=== PATIENT | male | born 1960 | race Caucasian/White ===

== ENCOUNTER 2017-02-17 06:02 | Outpatient (CLI) | payer MEDICAID ==
[~2017-02-17] VITALS: Ht 172.7 cm; Wt 67.3 kg
--- NOTE | ~2017-02-17 | HEMODYNAMI ---
PATIENT:TANVI DANIELS MEDICAL RECORD: [id number] : 60 LOCATION:[facility] ADMISSION DATE: 02/17/17 Generatedon:02/17/20178:38 Patient name: TANVI DANIELS Patient #: [id number] SSN: : Date of study: 02/17/2017 Page: Of Hemodynamic Procedure Report Patient Data Patient Demographics Procedure consent was obtained First Name: TANVI Gender: Male Last Name: JEREMIAH : 1960 Patient #: [id number] Age: 56 year(s) Race: Unknown Additional ID: [id number] Contact details Address: [address] [place] [address] [address] State: [place] City: [place] Zip code: [address] Past Medical History Allergies Allergen Reaction Date Comments Reported Other allergy 02/17/2017 All Debi, Amoxicillin, [place] Admission Admission Data Admission Date: 02/17/2017 Admission Time: 6:02 Height (in.): 5.8 BSA: 0.3 (m2) Height (cm.): 14.73 BMI: 3155.87 (kg/m2) Weight (lbs.): 151 Weight (kg.): 68.49 Lab Results Lab Result Date: 02/17/2017 Lab Result Time: 6:40 Biochemistry Name Units Result Min Max BUN mg/dl 13 --(--*-)-- 7 18 Creatinine mg/dl 0.9 --(-*--)-- 0.6 1.3 CBC Name Units Result Min Max Hematocrit % 46.4 --(-*--)-- 42 54 Hemoglobin g/dl 15.5 --(-*--)-- 13.5 17.5 Procedure Procedure Types Cath Procedure Diagnostic Procedure [facility] w/Coronaries w/Grafts Miscellaneous Procedures Moderate Sedation up to 30 minutes Procedure Description Procedure Date Procedure Date: 02/17/2017 Procedure Start Time: 8:09 Procedure End Time: 8:36 Procedure Staff Name Function Fuentes Jose MD Performing Physician Justin Andrews RN Nurse Reanna Figueroa RN Clinique Counter Manager Chava Waldropyder RT Monitor bOombate RT Scrub Procedure Data Cath Procedure Fluoroscopy Diagnostic fluoroscopy Total fluoroscopy Time: 3.4 time: 3.4 min min Diagnostic fluoroscopy Total fluoroscopy dose: 449 dose: 449 mGy mGy Contrast Material Contrast Material Type Amount (ml) Isovue 300 84 Entry Location Entry Primary Successful Side Size Upsize Upsize Entry Closure Succes sful Closure Location (Fr) 1 (Fr) 2 (Fr) Remarks Device Remarks Femoral Right 5 Fr Exoseal artery Estimated blood loss: 5 ml Diagnostic catheters Device Type Used For End Catheter Placement Diagnostic Infinity 5Fr Procedure AR MOD Catheter Diagnostic Infinity 5Fr Procedure LCB catheter Cordis 5Fr Pigtail Procedure Catheter (MP) Procedure Complications No complications Procedure Medications Medication Administration Route Dosage 0.9% NaCl I.V. 100 ml/hr Oxygen NC 2 l/min Heparin Flush Bag added to field 2 bags (1000units/500ml NS) Versed I.V. 2 mg Fentanyl I.V. 100 mcg Versed I.V. 1 mg Fentanyl I.V. 50 mcg Hemodynamics Rest BSA: 0.3 (m2) HGB: 15.5 (g/dl) O2 Consumption: Estimated: 33.47 (ml/min) O2 Cons umption indexed: Estimated:111.57 (ml/min/m) Heart Rate: 52 (bpm) Pressure Samples Time Site Value (mmHg) Purpose Heart Use Rate(bpm) 8:26 LV 126/2,15 Snapshot 48 8:27 AO 135/64(91) Pullback 52 8:27 LV 127/1,17 Pullback 52 Gradients Valve Time Site 1 Site 2 Mean SEP/DFP Peak To Heart Use (mmHg) (sec/min) Peak Rate (mmHg) (bpm) Aortic 8:27 LV AO 0 4 0 52 127/1,17 135/64(91) Calculations Valve P-P Mean Valve Index Valve Source Name Gradient Area Flow (cm2) Aortic 0 0 0 0 Snapshots Pre Cath Intra NCS Post Cath Vital Signs Time Heart Resp SPO2 etCO2 NIBP (mmHg) Rhythm Pain Sedation Rate (ipm) (%) (mmHg) Status Level (bpm) 7:53:36 56 15 100 23.3 158/74(112) NSR 0 (11) 10(A) , No pain 7:58:25 46 14 100 30.1 130/72(101) NSR 0 (11) 10(A) , No pain 8:03:09 47 14 100 41.4 125/68(99) NSR 0 (11) 10(A) , No pain 8:07:50 44 18 100 42.9 125/66(90) NSR 0 (11) 10(A) , No pain 8:12:29 45 19 100 42.2 121/79(96) NSR 0 (11) 10(A) , No pain 8:17:09 45 31 100 43.7 121/69(89) NSR 0 (11) 10(A) , No pain 8:21:50 49 18 100 22.6 121/68(93) NSR 0 (11) 10(A) , No pain 8:26:32 47 16 100 46 114/67(87) NSR 0 (11) 9(A) , No pain 8:31:58 46 19 100 44.5 122/68(90) NSR 0 (11) 9(A) , No pain 8:36:39 43 8 100 41.4 129/67(98) NSR 0 (11) 9(A) , No pain Medications Time Medication Route Dose Verified Delivered Reason Notes Effect iveness by by 7:51:53 0.9% NaCl I.V. 100 Justin Justin Per ml/hr Juliana Andrews physician RN RN 7:52:07 Oxygen NC 2 Justin Justin Per l/min Lorjulio Yangigan physician RN RN 7:52:25 Heparin Flush added 2 Justin Justin used for Bag to bags Lorigan Lorigan procedure (1000units/500ml field RN RN NS) 8:03:17 Versed I.V. 2 mg Justin Justin for Lorigan Lorigan sedation RN RN 8:03:29 Fentanyl I.V. 100 Justin Justin for mcg Lorigan Lorigan sedation RN RN 8:09:00 Versed I.V. 1 mg Justin Justin for Lorigan Lorigan sedation RN RN 8:11:40 Fentanyl I.V. 50 Justin Justin for mcg Lorigan Lorigan sedation RN director of annual giving Log Time Note 7:39:35 Reanna Figueroa RN sent for patient. Start room use. 7:39:37 Time tracking: Regular hours 7:39:41 Plan of Care:Hemodynamics will remain stable., Cardiac rhythm will remain stable., Comfort level will be maintained., Respiratory function will remain adequate., Patient/ family verbilizes understanding of procedure., Procedure tolerated without complication., Recovers from procedure without complications.. 7:40:07 H&P Date Dictated: 02/08/2017 Within 30 days and on chart., H&P Addendum completed by physician on day of procedure. (MUST COMPLETE FOR ALL OUTPATIENTS). 7:40:34 Patient Height : 5.8 inches 7:40:40 Patient Weight : 151 lbs 7:44:14 Patient received from Pre/Post Procedure Room to CCL 1 Alert and oriented. Tansferred to table in Supine position. 7:44:16 Warm blankets applied, and hilario hugger turned on for patient comfort. 7:44:16 Correct patient and procedure confirmed by team. 7:44:21 Signed procedure consent form obtained from patient. 7:44:21 ECG and BP/O2 sat monitors applied to patient. 7:51:53 0.9% NaCl 100 ml/hr I.V. was administered by Justin Andrews RN; Per physician; 7:52:07 Oxygen 2 l/min NC was administered by Justin Andrews RN; Per physician; 7:52:25 Heparin Flush Bag (1000units/500ml NS) 2 bags added to field was administered by Justin Andrews RN; used for procedure; 7:52:33 Vital chart was started 7:55:57 Baseline sample Acquired. 7:56:02 Rhythm: sinus rhythm 7:56:04 Full Disclosure recording started 7:56:05 Pre-procedure instructions explained to patient. 7:56:06 Pre-op teaching completed and patient verbalized understanding. 7:56:21 Family in waiting room. 7:56:23 Patient NPO since Midnight. 7:56:45 Patient allergic to Other allergyAll Debi, Amoxicillin, [place] 7:56:47 Is the patient allergic to Iodine/contrast media? No. 7:56:48 Is patient on blood thinner?No 7:56:49 Patient diabetic? No. 7:56:52 Previous problem with sedation/anesthesia? No ? 7:56:53 Snore? No 7:56:54 Sleep apnea? No 7:56:55 Deviated septum? No 7:56:56 Opens mouth fully? Yes 7:56:57 Sticks out tongue? Yes 7:56:58 Airway obstruction? No ? 7:57:19 Dentures? Yes Upper and bottom in tight 7:57:24 Pre procedure: right dorsailis pedis pulse 2+ Normal; easily identifiable; not easily obliterated 7:57:27 Patient pain scale 0/10 ?. 7:57:37 IV patent on arrival in left forearm with 0.9% NaCl at [facility]. 7:59:34 Lab Result : BUN 13 mg/dl 7:59:34 Lab Result : Creatinine 0.9 mg/dl 7:59:34 Lab Result : Hemoglobin 15.5 g/dl 7:59:34 Lab Result : Hematocrit 46.4 % 7:59:37 Lab results completed and on chart. 7:59:38 Lab results completed and on chart. 7:59:40 Right groin area was prepped with chlora-prep and draped in sterile fashion 7:59:42 Alarms reviewed by R. N. 7:59:42 Sharps counted by scrub and verified by R.N. 7:59:47 Use device set Femoral Dx 7:59:50 PERCUTANEOUS ENTRY 19GA needle opened to sterile field. 7:59:51 Tegaderm 4 x 4 (1626W) opened to sterile field. 7:59:54 ACIST Manifold (00450) opened to sterile field. 8:00:04 ACIST Hand Control (05973) opened to sterile field. 8:00:06 St Isra 260cm J .035 wire opened to sterile field. 8:00:06 Terumo 5Fr Stuyvesant Sheath opened to sterile field. 8:00:07 Medline Cath Pack ([id number]) opened to sterile field. 8:00:08 Bag Decanter (2002S) opened to sterile field. 8:00:10 ACIST Syringe (40853) opened to sterile field. 8:00:19 Diagnostic Infinity 5Fr Multipack catheter opened to sterile field. 8:01:24 Physician arrived 8:01:24 --------ALL STOP TIME OUT------ 8:01:25 Final Timeout: patient, procedure, and site verified with staff and physician. All members of the team are in agreement. 8:01:27 Right groin site verified by team. 8:01:29 Physical assessment completed. ASA score P 2 - A patient with mild systemic disease as per Fuentes Jose MD. 8::33 Sedation plan: IV Moderate Sedation Medication:Versed, Fentanyl 8::33 Zero performed for pressure channel P1 8:03:17 Versed 2 mg I.V. was administered by Justin Andrews RN; for sedation; 8::29 Fentanyl 100 mcg I.V. was administered by Justin Andrews RN; for sedation; 8:09:00 Versed 1 mg I.V. was administered by Justin Andrews RN; for sedation; 8:09:47 Procedure started. 8:10:16 No local anesthetic used due to allergies. 8:11:40 Fentanyl 50 mcg I.V. was administered by Justin Andrews RN; for sedation; 8:13:31 A 5 Fr sheath was inserted into the Right Femoral artery 8:14:31 LCA angiography performed. 8:16:56 Catheter exchanged over wire. 8:17:59 A Diagnostic Infinity 5Fr AR MOD Catheter was advanced over the wire and used for Procedure. 8:18:33 RCA angiography performed. 8:20:47 Catheter removed. unable to cannulate vessel. 8:22:51 A Diagnostic Infinity 5Fr LCB catheter was advanced over the wire and used for Procedure. 8:23:02 SVG to LAD/DIAG angiography performed. 8:24:56 Catheter exchanged over wire. 8:25:07 A Cordis 5Fr Pigtail Catheter (MP) was advanced over the wire and used for Procedure. 8:26:41 LV gram done using DYKES 8::43 Injector settings: Ml/sec: 10, Volume: 20, 8:26:49 EF : 50 % 8:27:07 Catheter removed. 8:27:13 Cordis 5Fr Exoseal opened to sterile field. 8:27:21 Sheath removed intact; hemostasis achieved with Exoseal to the Right Femoral artery. 8:28:48 Procedure ended.(Physican Out) 8:30:29 Fluoroscopy time 03.40 minutes. 8:32:59 Flurop Dose total: 449 8:32:59 Fluoroscopy dose: 449 mGy 8:33:04 Contrast amount:Isovue 300 84ml. 8:33:05 Sharps counted by scrub and verified by R.N. 8:33:08 Insertion/operative site no bleeding no hematoma. 8:33:10 Post-op/insertion site Right Femoral artery dressed using a 4 x 4 and Tegaderm. 8:33:14 Post right femoral artery:stable, soft, clean and dry 8:33:16 Post Procedure Pulses reassessed and unchanged 8:33:17 Post-procedure physical assessment completed. ASA score P 2 - A patient with mild systemic disease as per Fuentes Jose MD. 8:33:20 Post procedure rhythm: unchanged. 8:33:23 Estimated blood loss: 5 ml 8:33:24 Post procedure instruction explained to patient.Patient verbalizes understanding. 8:33:25 Patient needs reinforcement of post procedure teaching. 8:34:59 Procedure type changed to Cath procedure, Diagnostic procedure, LHC, LHC w/Coronaries w/Grafts, Miscellaneous Procedures, Moderate Sedation up to 30 minutes 8:35:56 Procedure and supply charges have been captured, reviewed, submitted and are correct. 8:35:58 Procedure Complication : No complications 8:36:00 Vital chart was stopped 8:36:01 See physician's report for complete and final results. 8:36:03 Report given to Pre/Post Procedure Room. 8:36:05 Patient transfered to Pre/Post Procedure Room with Stretcher. 8:36:08 Procedure ended. 8:36:08 Full Disclosure recording stopped 8:36:46 End room use (Document Last) Device Usage Item Name Manufacture Quantity Catalog Hospital Part Current Minimal Lot# / Number Charge Number Stock Stock Serial# Code PERCUTANEOUS Cook Medical 1 [id number] 108062 5 ENTRY 19GA needle Tegaderm 4 x 3M 1 1626W 920364 919128 548546 5 4 (1626W) ACIST Acist 1 85139 943148 767986 303715 5 Manifold Medical (68463) Systems Inc ACIST Hand Acist 1 10067 322958 223173 263793 5 Control Medical (84434) Systems Inc St Isra St Isra 1 892394 482979 195723 691916 30 260cm J .035 wire Terumo 5Fr Terumo 1 QNT391 968461 671816 651065 40 Stuyvesant Sheath Medline Cath Cardinal 1 [id number] 907353 63127 671417 5 Pack [employer] (WAIM88052) Bag Decanter Microtek 1 2001S 025198 48476 795543 5 () Medical Inc. ACIST Acist 1 70124 152566 597521 314928 20 Syringe Medical (42757) Systems Inc Diagnostic Cardinal 1 NE5471 952872 57982 085504 30 Infinity 5Fr Health Multipack catheter Diagnostic Cardinal 1 397060Y 328601 887877 645202 15 Infinity 5Fr Health AR MOD Catheter Diagnostic Cardinal 1 [id number] 296465 152247 579914 5 Infinity 5Fr Health LCB catheter Cordis 5Fr Cardinal 1 884914 5 Pigtail Health Catheter (MP) Cordis 5Fr Cardinal 1 EX500 611602 206796 397868 10 Shoop Signature Audit [place] Stage Time Signature Unsigned Intra-Procedure 02/17/2017 Chava Garcia 8:38:12 AM RT(R) Signatures Monitor : Chava Garcia RT Signature : Date : Time : [address] [address]
[2017-02-17] MEDS ORDERED: BAYER CHEWABLE81 MG PO (06:17)
[2017-02-17] MEDS ORDERED: LIPITOR20 MG PO (06:17)
[2017-02-17 06:24] VITALS: BP 166/79; Ht 172.7 cm; Wt 67.3 kg
[2017-02-17 07:01] LABS: CALC OSMOLALITY 278 mosm/kg (275-300); CALCIUM 8.6 mg/dL (8.5-10.1); CARBON DIOXIDE 26.6 mmol/L (21.0-32.0); CHLORIDE - SERUM 106 mmol/L (98-107); CREATININE - SERUM 0.9 mg/dL (0.6-1.3); GLUCOSE 92 mg/dL (74-106); SODIUM 140 mmol/L (136-145); UREA NITROGEN 13 mg/dL (7-18); eGFR NON AFRICAN AMERICAN > 90 mL/min (90-120)
[2017-02-17 07:13] LABS: BASOPHILS 0.4 % (0-2); HEMATOCRIT 46.4 % (42.0-54.0); HEMOGLOBIN 15.5 g/dL (13.5-17.5); IMMATURE GRANULOCYTES 0.2 % (0-5); LYMPHOCYTES 40.1 % (15-50); MCH 32.6 pg (26.0-34.0); MCHC 33.4 g/dL (31.0-37.0); MCV 97.5 fL (80.0-100.0); MEAN PLATELET VOLUME 10.6 fL (7.4-10.4); MONOCYTES 14.6 % (2-11); NEUTROPHILS 40.7 % (40-80); PLATELET COUNT 189 10x3/uL (130-400); RBC 4.76 10x6/uL (4.20-6.10); RDW 12.7 % (11.5-14.5); WBC 4.7 10x3/uL (4.8-10.8)
== END 2017-02-17 10:55 | disposition home or self-care (01) ==
LOC: D.CATH 06:02
PROVIDERS: Internal Medicine Cardiovascular Disease
DX: I25.110 Atherosclerotic heart disease of native coronary artery with unstable angina pectoris (principal); Z95.1 Presence of aortocoronary bypass graft; Z01.812 Encounter for preprocedural laboratory examination

== ENCOUNTER 2017-03-11 05:07 | Day surgery (SDC) | payer MEDICAID ==
[~2017-03-11] VITALS: Ht 172.7 cm; Wt 64.4 kg
[~2017-03-11 05:07] MED LIST: BAYER CHEWABLE81 MG PO; LIPITOR20 MG PO
[2017-03-11 05:36] LABS: HEMATOCRIT 47.2 % (42.0-54.0); HEMOGLOBIN 15.9 g/dL (13.5-17.5); MCH 32.9 pg (26.0-34.0); MCHC 33.7 g/dL (31.0-37.0); MCV 97.7 fL (80.0-100.0); MEAN PLATELET VOLUME 10.2 fL (7.4-10.4); RBC 4.83 10x6/uL (4.20-6.10); RDW 12.5 % (11.5-14.5)
[2017-03-11 06:18] VITALS: BP 145/92; Ht 172.7 cm; Wt 64.4 kg
--- NOTE | 2017-03-11 17:03 | NUR ---
0936-MEDICATED WITH 4MG ZOFRAN AND 4MG DECADRON IV FOR NAUSEA/VOMITING. COOL CLOTH PLACED ON FOREHEAD.
--- NOTE | 2017-03-11 17:10 | NUR ---
1115-PT. ESCORTED VIA WHEELCHAIR TO PERSONAL CAR, LEFT WITH DRIVING.
--- NOTE | 2017-03-13 13:23 | HP ---
PATIENT: TANVI DANIELS MEDICAL RECORD: [id number] ACCOUNT: [id number] LOCATION:D.OPS : 60 ADMISSION DATE: 03/11/17 HISTORY AND PHYSICAL EXAMINATION TANVI Bhat (56yo, M) ID# [id number]. Date/Time03/04/2017 10:74FKQGA16/26/1961Service Dept.NPP_[facility] ClinicProviderEDBELEM BASILIO MDInsuranceMed Primary: [place] Insurance # : [id number] Referring Provider Name : ANITA HANEY Employer Name : [employer] Prescription: CMX - Member is eligible. Prescription: [employer] MEDICAID ADMINISTRATION - Member is eligible. Chief Complaint Chest pain evaluation for removal or adjustment of painful sternal wire Patient's Care Team Referring Provider (): ANITA HANEY: [address] [place] [phone], , Patient's Pharmacies [facility] ([facility]): [phone] [place] [address], , Vitals BP:132/74 sitting L arm 03/04/2017 10:47 amBP Cuff Size:adult 03/04/2017 10:47 amHR:60,reg 03/04/2017 10:47 amHt:5 ft 8 in 03/04/2017 10:41 amWt:140 lbs 03/04/2017 10:47 amNotes:wires in chest are painful and bother him to distraction 03/04/2017 10:48 amBMI:21.3 03/04/2017 10:47 amAllergies Reviewed Allergies AMOXICILLINCOBALTCODEINEOXYCONTINMedications Reviewed Medications Aspir-81 81 mg tablet,delayed release Take 1 tablet(s) every day by oral route.03/04/17 enteredKathy Wilsonatorvastatin 20 mg rmklom50/13/17 filledCaremarkProblems Reviewed Problems Chest pain - Onset: 03/04/2017 Family History Discussed Family History Patient listed noneSocial History Discussed Social History Cardiology Smoking Status: Former smoker High Cholesterol: Y High blood pressure: N Exercise level: Moderate Overweight: N Obese: N Diabetes: N Alcohol intake: None Diet: Regular 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 HPI General Rash/Skin Lesion Reported by patient. Location: chest Quality: painful; pale Severity: severe Duration: has noted for >3 months Onset/Timing: abrupt onset Context: no new detergents or skin products; no one else with similar rash Alleviating factors: bruno nothing gives relief Aggravating factors: exercise Associated Symptoms: neck mobility issues and TMJ since chest wires painful wires in his sternum ROS Patient reports exercise intolerance but reports no fever, no night sweats, no significant weight gain, and no significant weight loss. He reports muscle aches, muscle weakness, and arthralgias/joint pain but reports no back pain and no swelling in the extremities. He reports no dry eyes, no irritation, and no vision change. He reports no difficulty hearing and no ear pain. He reports no frequent nosebleeds and no nose/sinus problems. He reports no sore throat, no bleeding gums, no snoring, no dry mouth, no mouth ulcers, no oral abnormalities, and no teeth problems. He reports no jugular vein distension and no swollen glands. He reports no chest pain, no arm pain on exertion, no shortness of breath when walking, no shortness of breath when lying down, no palpitations, and no known heart murmur. He reports no cough, no wheezing, no shortness of breath, and no coughing up blood. He reports no abdominal pain, no vomiting , normal appetite, no diarrhea, not vomiting blood, no nausea, and no constipation. He reports no incontinence, no difficulty urinating, no hematuria, and no increased frequency. He reports no abnormal mole, no jaundice, and no rashes. He reports no loss of consciousness, no weakness, no numbness, no seizures, no dizziness, and no headaches. He reports no depression, no sleep disturbances, feeling safe in relationship, and no alcohol abuse. He reports no fatigue. He reports no swollen glands and no bruising . He reports no runny nose, no sinus pressure, no itching, no hives, and no frequent sneezing. ROS as noted in the HPI Physical Exam Patient is a 56-year-old male. Constitutional: General Appearance well nourished and developed and healthy-appearing. Level of Distress NAD. Ambulation ambulating normally. Cardiovascular: Apical Impulse not displaced or no thrill. Heart Auscultation normal s1 and s2; no murmurs, rubs, or gallops; and RRR; painful sternal wires Predominant. Arterial Pulses no abdominal aorta bruits, femoral bruits, or popliteal HISTORY AND PHYSICAL [id number] JEREMIAH,TINAJERO KHARI bruits and 2+ bilateral, carotid 2+ bilateral, femoral 2+ bilateral, popliteal 2+ bilateral, and dorsalis pedis 2+ bilateral. Edema no edema or varicosities. Lungs: Repiratory Effort no dyspnea. Percussion no hyperresonance or dullness or flatness. Auscultation no wheezing, rhonchi, or rales / crackles and breathing sounds normal, good air movement, and CTA except as noted. Abdomen: Bowl Sounds normal. Inspection and Palpation no tenderness, guarding, masses, or rebound tenderness and soft and non-distended. Liver non-tender and no hepatomegaly. Spleen non-tender and no splenomegaly. Hernia none palpable. Musculoskeletal System: Gait And Stance normal gait and stance. Digits and Nails normal nails and no cyanosis. Neurologic: Cranial Nerves grossly intact. Reflexes DTRs 2+ bilaterally throughout. Sensation grossly intact. Lymph Nodes: Lymph Nodes no cervical LAD, supraclavicular LAD, axillary LAD, or inguinal LAD. Eyes: Lids and Conjunctivae no discharge or pallor and non-injected. Pupils PERRLA. Cornea grossly intact. EOM EOMI. Lens clear. Sclerae non-icteric. Neck: Neck no masses, enlarged lymph nodes, or carotid bruits and supple and trachea midline. Thyroid no enlargement or nodules and non-tender. Skin: Inspection and Palpation no rash, lesions, ulcers, jaundice, or abnormal nevi. Assessment / Plan painful sternal wires 1. Chest pain - painful sternal wires R07.89: Other chest pain CHEST PAIN: CARE INSTRUCTIONS Discussion Notes painful sternal wires I have discussed the patient's sternum with him in detail as well as the alternative methods of treatment we discussed wire removal including the expected benefits and risks which included bleeding infection and instability as well as the imponderables he understands all of the above and wishes to proceed with planned surgery. we'll review CT scan and plan removal of sternal wires MANUEL BASILIO MD at 1323 CC: [id number] DICTATION DATE: 03/11/17815 MANAGER ONCOLOGY: TC 03/11/17815 [facility] 03/11/17 [id number] [place] [address]
--- NOTE | 2017-03-13 13:23 | OP ---
PATIENT NAME: TANVI DANIELS MEDICAL RECORD: [id number] :60 [facility] ADMISSION DATE: SURGEON: MANUEL STARR MD DATE OF OPERATION: 03/11/2017 DATE OF SERVICE: 03/11/2017 SURGEON: Manuel Strar M.D. ANESTHESIA: General, Dr. Turner. OPERATION PERFORMED: Sternal wire removal. PREOPERATIVE DIAGNOSIS: Painful sternal wires. POSTOPERATIVE DIAGNOSIS: Painful sternal wires. INDICATION FOR OPERATION: Painful surgical wires over 6 years with continued issues with his sternal wires. FINDINGS AT OPERATION: Fix sternal wires, no obvious infection or abnormal reaction. ESTIMATED BLOOD LOSS: Less than 3 cc. DESCRIPTION OF PROCEDURE: After informed consent, adequate preoperative medication evaluation, the patient was brought to the operating room, placed on the table in the supine position. After induction of general endotracheal anesthesia and application of appropriate monitoring device, his chest prepped and draped in a sterile field, utilizing Betadine scrub, alcohol, and Betadine solution. Betadine-impregnated drape was also used. An incision was made above the sternal wires. There were 5 incisions needed that were approximately 1 cm in length. Dissection was carried down to the wire. The wire was elevated untwisted, cut and removed. The wounds were irrigated. All wounds were closed after instrument count and sponge count were correct times 2 utilizing 2-0 Vicryl on the deep subcutaneous tissue, 3-0 Vicryl on the superficial subcutaneous tissue and Steri-Strips. Sterile dressings were applied. The patient tolerated the procedure well and transferred to postanesthesia recovery in satisfactory condition. TRANSINT:[id number] Voice Confirmation ID: [id number] DOCUMENT ID: [id number] MANUEL STARR MD at 1323 CC: [id number] DICTATION DATE: 03/11/17 0828 PHOSPHORIC ACID SUPERVISOR: 03/11/17 1203 [facility] 03/11/[address] [address]
== END 2017-03-11 11:15 | disposition home or self-care (01) ==
LOC: D.OPS 05:07
PROVIDERS: Anesthesiology
DX: T85.692A Other mechanical complication of permanent sutures, initial encounter (principal); R07.9 Chest pain, unspecified; Z95.1 Presence of aortocoronary bypass graft; Z01.812 Encounter for preprocedural laboratory examination

== ENCOUNTER → 2017-07-05 07:42 | Outpatient (CLI) | payer MEDICAID ==
[2017-03-11 06:18] VITALS: BMI 21.3
== END | disposition home or self-care (01) ==
LOC: D.CT 07:42
DX: R31.9 Hematuria, unspecified (principal)

== ENCOUNTER → 2017-08-02 19:36 | Outpatient (CLI) | payer MEDICAID ==
[2017-03-11 06:18] VITALS: BMI 21.3
== END | disposition home or self-care (01) ==
LOC: D.LABREF 19:36
DX: R31.9 Hematuria, unspecified (principal)

== ENCOUNTER 2017-08-11 06:56 | Day surgery (SDC) | payer MEDICAID ==
[~2017-08-11] VITALS: Ht 172.7 cm; Wt 68.0 kg
--- NOTE | ~2017-08-11 | OP ---
PATIENT NAME: TANVI DANIELS MEDICAL RECORD: [id number] :60 LOCATION:DFarooqOPS ADMISSION DATE: SURGEON: NORMA CERON MD DATE OF OPERATION: 08/11/2017 ANESTHESIA: General anesthesia by Dr. Dhruv Cho. DIAGNOSES: Hernan hematuria, benign prostatic hypertrophy. FINDINGS: Enlarged prostate with vascular prostatic urethra. In the bladder, single ureteral orifices bilaterally. No bladder tumors. PROCEDURE: Cystoscopy. BLOOD LOSS: None. CLINICAL HISTORY: This is a 57-year-old male, who is being followed by myself for a 5.5 cm left renal cyst, which is a Bosniak II in classification. He has episodes of painless gross hematuria. CT scan did not show anything else in the kidneys. He had urine cytology, which did not show any tumor cells. He is a smoker, 1 pack per day for 25 years and he quit 7 years ago. He comes today to have cystoscopy performed. He is allergic to CODEINE, LIDOCAINE, AMOXICILLIN, ROSANNA, OXYCODONE, and COBALT. We gave him Levaquin IV patient observation assistant to the OR. Initially, this procedure was supposed to be under TIVA by the patient even with large doses of propofol would not stop having muscular activity, especially with abduction of his legs. Therefore, we had to give him general anesthetic to settle him down. DESCRIPTION OF PROCEDURE: Once general anesthesia had been given, he was prepped and draped. A 21-Welsh cystoscope with 30-degree lens was used for visualization. He has lateral lobe enlargement and some enlargement of the bladder neck, median lobe with the vascular prostatic urethra. This is the most likely source of his bleeding. Going into the bladder, there are single ureteral orifices on each side and no bladder tumors were seen. The bladder was emptied through the scope and then the scope was removed. I will start him on finasteride 5 mg p.o. once a day to start shrinking the prostate and the prostatic veins. I will see him in 1 month's time to check on his progress. TRANSINT:[id number] Voice Confirmation ID: [id number] DOCUMENT ID: [id number] NORMA CERON MD at 1350 CC: [id number] DICTATION DATE: 08/11/17925 VP TRANSPORTATION: 08/11/17 1157 [facility] [address] [facility] [place] [address]
[2017-08-11 07:28] LABS: HEMOGLOBIN 14.8 g/dL (13.5-17.5); MCH 33.6 pg (26.0-34.0); MCHC 34.4 g/dL (31.0-37.0); MCV 97.5 fL (80.0-100.0); RBC 4.41 10x6/uL (4.20-6.10); RDW 12.7 % (11.5-14.5); WBC 5.4 10x3/uL (4.8-10.8)
[2017-08-11 07:46] VITALS: BP 151/87; Ht 172.7 cm; Wt 68.0 kg
== END 2017-08-11 11:15 | disposition home or self-care (01) ==
LOC: D.OPS 06:56
PROVIDERS: Anesthesiology
DX: R31.0 Gross hematuria (principal); N40.0 Benign prostatic hyperplasia without lower urinary tract symptoms; Z88.4 Allergy status to anesthetic agent; Z88.5 Allergy status to narcotic agent; Z88.0 Allergy status to penicillin; Z88.8 Allergy status to other drugs, medicaments and biological substances; Z87.891 Personal history of nicotine dependence; Z01.812 Encounter for preprocedural laboratory examination

== ENCOUNTER → 2018-08-24 09:56 | Outpatient (CLI) | payer MEDICAID ==
[2017-08-11 07:46] VITALS: BMI 22.8
== END | disposition home or self-care (01) ==
LOC: D.CT 09:56
PROVIDERS: ATTEND Family Medicine
DX: N28.1 Cyst of kidney, acquired (principal); R91.8 Other nonspecific abnormal finding of lung field